=== PATIENT | female | born 1980 | race Hispanic/Latino ===

== ENCOUNTER 2021-06-17 21:58 | Emergency (ER) | payer MEDICAID ==
[~2021-06-17] VITALS: Ht 157.5 cm; Wt 113.4 kg
[2021-06-17] MEDS ORDERED: KETOROLAC 30MG VIAL (30MG/ML) IM ONE (22:30)
[2021-06-17] MEDS ORDERED: IBUP-2070 PO (23:48)
[2021-06-17] MEDS ORDERED: ACET-66 PO (23:48)
[2021-06-18 00:27] VITALS: BP 124/74
== END 2021-06-18 00:28 | disposition home or self-care (01) ==
LOC: EDH 21:58
DX: S40.012A Contusion of left shoulder, initial encounter (principal); S60.211A Contusion of right wrist, initial encounter; S60.212A Contusion of left wrist, initial encounter; Z79.1 Long term (current) use of non-steroidal anti-inflammatories (NSAID); Y04.2XXA Assault by strike against or bumped into by another person, initial encounter; Y93.89 Activity, other specified; Y92.89 Other specified places as the place of occurrence of the external cause; Y99.8 Other external cause status
CPT/HCPCS: 73030; 73110 ×2; 96372; 99284; J1885

== ENCOUNTER 2021-08-08 09:57 | Emergency (ER) | payer MEDICAID ==
[~2021-08-08] VITALS: Ht 157.5 cm; Wt 128.4 kg
[~2021-08-08 09:57] MED LIST: ACET-66 PO; IBUP-2070 PO
[2021-08-08] MEDS ORDERED: KETOROLAC 60 MG VIAL (30MG/ML) IM ONE (11:00)
[2021-08-08] MEDS ORDERED: HYDROCODONE/ACETAMINOPHEN 5/325 MG TAB PO ONE (11:00)
[2021-08-08] MEDS ORDERED: ORPHENADRINE CITRATE 30 MG/ML ML IM ONE (11:00)
[2021-08-08] MEDS ORDERED: LIDOP TP (11:18)
[2021-08-08] MEDS ORDERED: CYCL-309 PO (11:18)
[2021-08-08] MEDS ORDERED: MELO7.5T12 PO (11:18)
[2021-08-08 11:30] VITALS: BP 122/80
== END 2021-08-08 11:31 | disposition home or self-care (01) ==
LOC: EDH 09:57
DX: M62.830 Muscle spasm of back (principal); E11.9 Type 2 diabetes mellitus without complications; E78.5 Hyperlipidemia, unspecified; Z71.82 Exercise counseling; Z79.1 Long term (current) use of non-steroidal anti-inflammatories (NSAID); Z90.49 Acquired absence of other specified parts of digestive tract
CPT/HCPCS: 96372 ×2; 99284; J1885; J2360

== ENCOUNTER 2021-09-02 23:01 | Emergency (ER) | payer MEDICAID ==
[~2021-09-02] VITALS: Ht 157.5 cm; Wt 128.8 kg
[~2021-09-02 23:01] MED LIST changes: +CYCL-309 PO; +LIDOP TP; +MELO7.5T12 PO
[2021-09-02 23:03] VITALS: BP 123/70
== END 2021-09-03 03:28 | disposition left against medical advice (07) ==
LOC: EDH 23:01
DX: J02.9 Acute pharyngitis, unspecified (principal); Z53.21 Procedure and treatment not carried out due to patient leaving prior to being seen by health care provider